=== PATIENT | male | born 2000 | race Caucasian/White ===

== ENCOUNTER 2022-07-12 09:32 | Inpatient (IN) ==
[2022-07-12] MEDS ORDERED: SODIUM CHLORIDE 0.9% 1000ML 1,000 ML IV ONE (09:46)
[2022-07-12 10:14] LABS: Hematocrit (blood only) 47.2 % (40.1-51.0); Hemoglobin 16.1 g/dl (14.0-18.0); Mean Corpuscular Hemoglobin 31.6 pg (25.0-34.0); Mean Corpuscular Hgb Conc 34.1 g/dL (32.0-36.0); Mean Corpuscular Volume 92.7 fL (80.0-100.0); Mean Platelet Volume 9.5 fL (9.4-12.4); Platelet Count 302 K/uL (130-400); RDW Coefficient of Variation 12.1 % (11.5-14.5); RDW Standard Deviation 41.6 fL (36.4-46.3); Red Blood Count 5.09 M/uL (4.63-6.08); White Blood Count 26.13 K/ul (4.8-10.8)
[2022-07-12 10:15] LABS: Base Excess ABG -23.6 mEq/L (-9-1.8); HCO3 ABG 5 mmol/L (19-24); Oxygen Saturation ABG > 100.0 % (90-95); PCO2 ABG 16 mmHg (35-46); PO2 ABG 122 mmHg (80-95)
[2022-07-12 10:27] LABS: pH ABG 7.07 (7.35-7.45)
[2022-07-12 10:28] LABS: Allen Test Pos (Pos)
[2022-07-12] MEDS ORDERED: CEFEPIME 2,000 MG/20 ML VIAL IV STA (10:28)
[2022-07-12] MEDS ORDERED: DEXTROSE 50% 50 ML SYRINGE IV PRN (10:38)
[2022-07-12] MEDS ORDERED: GLUCOSE 40% GEL 15 GM TUBE PO PRN (10:38)
[2022-07-12] MEDS ORDERED: CARBOHYDRATES FOR HYPOGLYCEMIA PO PRN (10:38)
[2022-07-12] MEDS ORDERED: GLUCAGON FOR INJ 1 MG VIAL SQ PRN (10:38)
[2022-07-12] MEDS ORDERED: GLUCOSE 10 TAB/TUBE PO PRN (10:38)
[2022-07-12] MEDS ORDERED: DKA GOAL RANGE 150-250 mg/dl ONE ×2 (10:38→16:32)
[2022-07-12] MEDS ORDERED: STAT IV STA (10:39)
[2022-07-12 10:40] LABS: Albumin Globulin Ratio 1.5 (0.9-2); Albumin Level 4.8 gm/dl (3.4-5.0); BUN Creatinine Ratio 22.5 (10-20); Bilirubin,Total 0.5 mg/dl (0.2-1.0); Calcium 8.9 mg/dl (8.5-10.1); Creatinine Clr Calc Pharmacy 73.4 ml/min; Est GFR (African American) 74.4 ml/min; Est GFR (Non-African American) 64.2 ml/min; Globulin 3.1 gm/dl (2.5-4.0); Magnesium 2.1 mg/dl (1.7-2.4); Potassium 5.7 mmol/L (3.5-5.1); Total Protein 7.9 gm/dl (6.0-8.3)
[2022-07-12] MEDS ORDERED: NORMOSOL-R 1,000 ML IV ONE (10:40)
[2022-07-12 10:42] LABS: Troponin I High Sensitivity 4.6 pg/ml (0-20)
[2022-07-12] MEDS ORDERED: SODIUM BICARBONATE 8.4% 150 MEQ in DEXTROSE 5% 1,000 ML IV SCH (10:45)
[2022-07-12] MEDS ORDERED: NovoLIN-R BOLUS FROM BAG IV ONE (10:45)
[2022-07-12 10:46] LABS: Prothrombin Time 11.1 Seconds (9.0-12.0)
[2022-07-12 10:51] LABS: Acanthocytes 2+; Basophils # (auto) 0.09 K/uL (0-0.2); Basophils % (auto) 0.3 %; Eosinophils # (auto) 0.01 K/uL (0-0.50); Immature Granulocytes # (auto) 0.35 K/uL (0.00-0.02); Immature Granulocytes % (auto) 1.3 %; Lymphocytes # (auto) 1.05 K/uL (1.2-3.4); Monocytes % (auto) 7.3 %; Neutrophils # (auto) 22.73 K/uL (1.4-6.5); Neutrophils % (auto) 87.1 %; Polychromasia 1+; Tear Drop Cells 1+
--- NOTE | 2022-07-12 11:01 | Emergency Department Note ---
Impression & Plan DKA (diabetic ketoacidosis), Nausea & vomiting, Abdominal pain, LASHA (acute kidney injury), Acute hyperkalemia, Non-compliance ED Provider Note ED Provider Note NAME: MICHEL [id number] AGE:21 SEX: Male : 2000 ARRIVES VIA: EMS INFORMANT: Patient ED PROVIDER(s): Justyna Tavares DO CHIEF COMPLAINT: Hyperglycemia, nausea and vomiting HPI: This is a 21-year-old male presents via EMS from local [facility] facility due to concern for persistent hyperglycemia as well as patient's complaints of nausea and vomiting. Patient is a type I diabetic diagnosed at 10 years old. Per accompanying [facility] reports, patient has had varying levels of hyperglycemia over the last 4 to 5 days, but was also refusing to take his long-acting insulin. When asked about this, patient does not give any reason as to why he was refusing it. Patient states he has felt ill over the last 5 to 6 days with nausea and vomiting, and evolving abdominal pain. He states abdominal pain is "all over" and otherwise nonradiating. He denies any change in urine or stools. He states he feels tired. He states this feels similar to when he previously had DKA. Patient denies any recent fevers, chills, or URI symptoms. No other change in his medications. PAST MEDICAL HISTORY:See Below PAST SURGICAL HISTORY:See Below FAMILY HISTORY:See Below SOCIAL HISTORY:See Below HOME MEDICATIONS:See Below ALLERGIES:See Below VITALS:See Below PHYSICAL EXAMINATION: GENERAL: alert, unwell appearing, well nourished, no distress, non-toxic EYE EXAM: normal conjunctiva, PERRL and EOM's grossly intact OROPHARYNX: no exudate, no erythema, lips, buccal mucosa, and tongue normal and mucous membranes are dry NECK: supple, no nuchal rigidity, no adenopathy, non-tender LUNGS: Clear to auscultation. Normal chest wall mechanics, no w/r/r, mild ketotic smell HEART: no murmurs, S1 normal and S2 normal ABDOMEN: abdomen soft, generalized discomfort with palpation, normo-active bowel sounds, no masses, no rebound or guarding. Dull to percussion BACK: Back is symmetrical on inspection and there is no deformity, no midline tenderness, no CVA tenderness. SKIN: no rashes, petechiae, orbruising UPPER EXTREMITIES: upper extremities are grossly normal. FROM, nml pulses b/l. LOWER EXTREMITIES: No pitting edema. FROM, nml pulses b/l. NEURO EXAM: Normal sensorium, cranial nerves II-XII grossly intact, normal speech, no facial droop,nogross weakness of arms, no gross weakness of legs. Gross sensation intact. No ataxia. Vital Signs: reviewed and remarkable Differential Diagnosis: DKA, hyperglycemia, noncompliance, medication ADR, infection, trauma, LASHA, acute abdominal emergency, as well as others were considered MEDICAL DECISION MAKING: This is a 21 yo T1DM who presents with 5-6 days of n/v and abdominal pain. Shelter records indicate he has been refusing his long acting insulin. IV established by EMS. Labs drawn here, EKG and xray performed, patient given IVF and medication for nausea. Labs revealed suspected diagnosis of DKA. Patient reported feeling improved with IVF and was asking for po. Insuling drip and bicarb drip started. Normosol added. Patient and [facility] staff updated on results and plan. Case discussed with registered nurse cardiac and hospitalist for additional inpatient treatment. VS stable. HR improved with IVF. Patient a febrile. No ectopy or dysrhythmia noted. Consultation(s): 1108: Discussed with Dr. Kohler, ICU. 1134: Discussed with Dr. Tovar, [facility] hospitalist service ER Treatment Provided: See below 1052: Patient updated on results. Patient states abdominal pain and nausea are now improved after 1 L of IV fluids. Patient asking to take something by mouth. Diagnostics Interpreted By Me: -ECG: Sinus tachycardia 122, normal axis, normal QRS and QTc, nonspecific ST/T wave changes -Cardiac Monitoring: An order was placed for continuous cardiac monitoring. The monitor shows a rate of 117 with sinus tachycardia rhythm. -Laboratory studies: As stated above and show below. -Imaging studies: Chest and abdominal x-ray Triage Nursing Note Reviewed Prior/Outside Records Reviewed - [facility] records Procedures: [] Critical Care: Critical care of 46 min performed to assess and manage high likelihood of life- threatening DKA, involving labs and imaging performed with assessment to evaluate DKA diagnosis with frequent reassessment. This time includes bedside time, treatment discussions with patient/family/consultants, documentation time and excludes procedure time. Past Med/Surg History Medical History (Updated 07/12/22 @ 20:35 by Justyna Tavares DO) Ruptured spleen Traumatic pneumothorax Type 1 diabetes mellitus Surgical History (Updated 07/12/22 @ 11:57 by Karla Villarreal PA-C) No significant past surgical history Family History (Updated 07/12/22 @ 11:58 by Karla Villarreal PA-C) Denies family history of Diabetes Social History Smoking Status: Current every day smoker Do You Dip or Chew Tobacco: Yes; Hx Alcohol Use: No Hx Substance Use: No Preferred Language: Italian Lending Advisor Required: No Beliefs That Will Affect Care: None Current Living Situation: Other Feels Safe at Home: Yes Assistive Devices: Glasses Allergies Allergies Allergy/AdvReac Type Severity Reaction Status Date / Time No Known Allergies Allergy Verified 07/12/22 15:35 Home Meds Home Medications Medication Instructions Recorded Confirmed insulin glargine 100 unit/mL 37 unit subcut PM 07/12/22 07/12/22 subcutaneous solution insulin regular human 100 unit/mL 1 sliding scale dose subcut 07/12/22 07/12/22 injection solution (Novolin R USEASDIRECTD Regular U-100 Insulin) Results & Data (ED) Vital Signs Vital Signs - 24 hr 07/12/22 09:43 07/12/22 09:55 07/12/22 10:00 Temperature 37.1 C Temperature Source Oral Pulse Rate 129 H 123 H Pulse Rate from SpO2 Sensor 124 H Respiratory Rate 18 21 Blood Pressure 120/65 116/70 Blood Pressure Mean 83 85 Pulse Oximetry 100 100 Oxygen Delivery Method Room Air Room Air Sepsis Recent Fever Within 48 Hours No Sepsis New/Unexplained Change in Mental Status No Sepsis Action Taken by Nursing No Action Required 07/12/22 10:00 07/12/22 10:30 07/12/22 10:30 Temperature Temperature Source Pulse Rate 121 H 124 H Pulse Rate from SpO2 Sensor 125 H Respiratory Rate 19 18 Blood Pressure 112/56 L Blood Pressure Mean 74 Pulse Oximetry 100 Oxygen Delivery Method Sepsis Recent Fever Within 48 Hours Sepsis New/Unexplained Change in Mental Status Sepsis Action Taken by Nursing 07/12/22 11:00 07/12/22 11:30 Temperature Temperature Source Pulse Rate 131 H 122 H Pulse Rate from SpO2 Sensor Respiratory Rate 18 19 Blood Pressure Blood Pressure Mean Pulse Oximetry Oxygen Delivery Method Sepsis Recent Fever Within 48 Hours Sepsis New/Unexplained Change in Mental Status Sepsis Action Taken by Nursing Laboratory Data 07/12/22 10:05 07/12/22 10:05 Lab Results 07/12/22 07/12/22 07/12/22 Range/Units 09:43 09:44 10:05 WBC (4.8-10.8) K/ul RBC (4.63-6.08) M/uL Hgb (14.0-18.0) g/dl Hct (40.1-51.0) % MCV (80.0-100.0) fL MCH (25.0-34.0) pg MCHC (32.0-36.0) g/dL RDW Std Deviation (36.4-46.3) fL RDW Coeff of Jillian (11.5-14.5) % Plt Count (130-400) K/uL MPV (9.4-12.4) fL Immature Gran % (Auto) % Neut % (Auto) % Lymph % (Auto) % [place] % (Auto) % Eos % (Auto) % Baso % (Auto) % Neut # (Auto) (1.4-6.5) K/uL Lymph # (Auto) (1.2-3.4) K/uL [place] # (Auto) (0.24-0.82) K/uL Eos # (Auto) (0-0.50) K/uL Baso # (Auto) (0-0.2) K/uL Immature Gran # (Auto) (0.00-0.02) K/uL Polychromasia Tear Drop Cells Acanthocytes (Spur) PT (9.0-12.0) Seconds INR (0.9-1.1) ABG pH 7.07 L* (7.35-7.45) ABG pCO2 16 L (35-46) mmHg ABG pO2 122 H (80-95) mmHg ABG HCO3 5 L (19-24) mmol/L ABG O2 Saturation > 100.0 H (90-95) % ABG Base Excess -23.6 L (-9-1.8) mEq/L Tyler Test Pos (Pos) Oxygen Given ROOM AIR Sodium (136-145) mmol/L Potassium (3.5-5.1) mmol/L Chloride (98-107) mmol/L Carbon Dioxide (21-32) mmol/L Anion Gap (3-11) BUN (6-23) mg/dl Creatinine (0.6-1.4) mg/dl Est Cr Clr Drug Dosing ml/min Est GFR ( Amer) ml/min Est GFR (Non-Af Amer) ml/min BUN/Creatinine Ratio (10-20) Glucose (70-99(Fasting)) mg/dl POC Glucose > 600 H* 572 H* (70-99) mg/dl Lactate (0.4-2.0) mmol/L Calcium (8.5-10.1) mg/dl Magnesium (1.7-2.4) mg/dl Total Bilirubin (0.2-1.0) mg/dl AST (13-39) U/L ALT (7-52) U/L Alkaline Phosphatase (34-104) U/L Troponin I High Sens (0-20) pg/ml Total Protein (6.0-8.3) gm/dl Albumin (3.4-5.0) gm/dl Globulin (2.5-4.0) gm/dl Albumin/Globulin Ratio (0.9-2) Lipase (11-82) U/L Procalcitonin (0-0.5) ng/ml TSH (0.300-4.500) uIu/ml Urine Color Urine Appearance (Clear) Urine pH (4.5-7.5) Ur Specific [place] (1.000-1.030) Urine Protein (Negative) Urine Glucose (UA) (Negative) Urine Ketones (Negative) Urine Blood (Negative) Urine Nitrite (Negative) Urine Bilirubin (Negative) Urine Urobilinogen (Negative) Ur Leukocyte Esterase (Negative) Urine WBC (Auto) (0-5) /hpf Urine RBC (Auto) (0-4) /hpf U Hyaline Cast (Auto) (0-5) /lpf U Epithel Cells (Auto) (0-5) /lpf Urine Bacteria (Auto) (Negative) Urine Opiates Screen (Neg) Ur Methadone, Qual (Neg) Urine Barbiturates (Neg) Ur Phencyclidine (PCP) (Neg) U Amphetamin/Meth Scrn (Neg) MDMA (Ecstasy) Screen (Neg) U Benzodiazepines Scrn (Neg) Ur Cocaine Metabolite (Neg) U Marijuana (THC) Screen (Neg) 07/12/22 07/12/22 07/12/22 Range/Units 10:05 10:05 10:05 WBC 26.13 H (4.8-10.8) K/ul RBC 5.09 (4.63-6.08) M/uL Hgb 16.1 (14.0-18.0) g/dl Hct 47.2 (40.1-51.0) % MCV 92.7 (80.0-100.0) fL MCH 31.6 (25.0-34.0) pg MCHC 34.1 (32.0-36.0) g/dL RDW Std Deviation 41.6 (36.4-46.3) fL RDW Coeff of Jillian 12.1 (11.5-14.5) % Plt Count 302 (130-400) K/uL MPV 9.5 (9.4-12.4) fL Immature Gran % (Auto) 1.3 % Neut % (Auto) 87.1 % Lymph % (Auto) 4.0 % [place] % (Auto) 7.3 % Eos % (Auto) 0.0 % Baso % (Auto) 0.3 % Neut # (Auto) 22.73 H (1.4-6.5) K/uL Lymph # (Auto) 1.05 L (1.2-3.4) K/uL [place] # (Auto) 1.90 H (0.24-0.82) K/uL Eos # (Auto) 0.01 (0-0.50) K/uL Baso # (Auto) 0.09 (0-0.2) K/uL Immature Gran # (Auto) 0.35 H (0.00-0.02) K/uL Polychromasia 1+ Tear Drop Cells 1+ Acanthocytes (Spur) 2+ PT 11.1 (9.0-12.0) Seconds INR 1.0 (0.9-1.1) ABG pH (7.35-7.45) ABG pCO2 (35-46) mmHg ABG pO2 (80-95) mmHg ABG HCO3 (19-24) mmol/L ABG O2 Saturation (90-95) % ABG Base Excess (-9-1.8) mEq/L Tyler Test (Pos) Oxygen Given Sodium 134 L (136-145) mmol/L Potassium 5.7 H (3.5-5.1) mmol/L Chloride 99 (98-107) mmol/L Carbon Dioxide 5 L* (21-32) mmol/L Anion Gap 30 H (3-11) BUN 34 H (6-23) mg/dl Creatinine 1.51 H (0.6-1.4) mg/dl Est Cr Clr Drug Dosing 73.4 ml/min Est GFR ( Amer) 74.4 ml/min Est GFR (Non-Af Amer) 64.2 ml/min BUN/Creatinine Ratio 22.5 H (10-20) Glucose 583 H* (70-99(Fasting)) mg/dl POC Glucose (70-99) mg/dl Lactate (0.4-2.0) mmol/L Calcium 8.9 (8.5-10.1) mg/dl Magnesium 2.1 (1.7-2.4) mg/dl Total Bilirubin 0.5 (0.2-1.0) mg/dl AST 8 L (13-39) U/L ALT 13 (7-52) U/L Alkaline Phosphatase 75 (34-104) U/L Troponin I High Sens 4.6 (0-20) pg/ml Total Protein 7.9 (6.0-8.3) gm/dl Albumin 4.8 (3.4-5.0) gm/dl Globulin 3.1 (2.5-4.0) gm/dl Albumin/Globulin Ratio 1.5 (0.9-2) Lipase 54 (11-82) U/L Procalcitonin (0-0.5) ng/ml TSH (0.300-4.500) uIu/ml Urine Color Urine Appearance (Clear) Urine pH (4.5-7.5) Ur Specific [place] (1.000-1.030) Urine Protein (Negative) Urine Glucose (UA) (Negative) Urine Ketones (Negative) Urine Blood (Negative) Urine Nitrite (Negative) Urine Bilirubin (Negative) Urine Urobilinogen (Negative) Ur Leukocyte Esterase (Negative) Urine WBC (Auto) (0-5) /hpf Urine RBC (Auto) (0-4) /hpf U Hyaline Cast (Auto) (0-5) /lpf U Epithel Cells (Auto) (0-5) /lpf Urine Bacteria (Auto) (Negative) Urine Opiates Screen (Neg) Ur Methadone, Qual (Neg) Urine Barbiturates (Neg) Ur Phencyclidine (PCP) (Neg) U Amphetamin/Meth Scrn (Neg) MDMA (Ecstasy) Screen (Neg) U Benzodiazepines Scrn (Neg) Ur Cocaine Metabolite (Neg) U Marijuana (THC) Screen (Neg) 07/12/22 07/12/22 07/12/22 Range/Units 10:05 11:03 11:04 WBC (4.8-10.8) K/ul RBC (4.63-6.08) M/uL Hgb (14.0-18.0) g/dl Hct (40.1-51.0) % MCV (80.0-100.0) fL MCH (25.0-34.0) pg MCHC (32.0-36.0) g/dL RDW Std Deviation (36.4-46.3) fL RDW Coeff of Jillian (11.5-14.5) % Plt Count (130-400) K/uL MPV (9.4-12.4) fL Immature Gran % (Auto) % Neut % (Auto) % Lymph % (Auto) % [place] % (Auto) % Eos % (Auto) % Baso % (Auto) % Neut # (Auto) (1.4-6.5) K/uL Lymph # (Auto) (1.2-3.4) K/uL [place] # (Auto) (0.24-0.82) K/uL Eos # (Auto) (0-0.50) K/uL Baso # (Auto) (0-0.2) K/uL Immature Gran # (Auto) (0.00-0.02) K/uL Polychromasia Tear Drop Cells Acanthocytes (Spur) PT (9.0-12.0) Seconds INR (0.9-1.1) ABG pH (7.35-7.45) ABG pCO2 (35-46) mmHg ABG pO2 (80-95) mmHg ABG HCO3 (19-24) mmol/L ABG O2 Saturation (90-95) % ABG Base Excess (-9-1.8) mEq/L Tyler Test (Pos) Oxygen Given Sodium (136-145) mmol/L Potassium (3.5-5.1) mmol/L Chloride (98-107) mmol/L Carbon Dioxide (21-32) mmol/L Anion Gap (3-11) BUN (6-23) mg/dl Creatinine (0.6-1.4) mg/dl Est Cr Clr Drug Dosing ml/min Est GFR ( Amer) ml/min Est GFR (Non-Af Amer) ml/min BUN/Creatinine Ratio (10-20) Glucose (70-99(Fasting)) mg/dl POC Glucose (70-99) mg/dl Lactate 2.4 H* (0.4-2.0) mmol/L Calcium (8.5-10.1) mg/dl Magnesium (1.7-2.4) mg/dl Total Bilirubin (0.2-1.0) mg/dl AST (13-39) U/L ALT (7-52) U/L Alkaline Phosphatase (34-104) U/L Troponin I High Sens (0-20) pg/ml Total Protein (6.0-8.3) gm/dl Albumin (3.4-5.0) gm/dl Globulin (2.5-4.0) gm/dl Albumin/Globulin Ratio (0.9-2) Lipase (11-82) U/L Procalcitonin 0.16 (0-0.5) ng/ml TSH 0.360 (0.300-4.500) uIu/ml Urine Color Urine Appearance (Clear) Urine pH (4.5-7.5) Ur Specific [place] (1.000-1.030) Urine Protein (Negative) Urine Glucose (UA) (Negative) Urine Ketones (Negative) Urine Blood (Negative) Urine Nitrite (Negative) Urine Bilirubin (Negative) Urine Urobilinogen (Negative) Ur Leukocyte Esterase (Negative) Urine WBC (Auto) (0-5) /hpf Urine RBC (Auto) (0-4) /hpf U Hyaline Cast (Auto) (0-5) /lpf U Epithel Cells (Auto) (0-5) /lpf Urine Bacteria (Auto) (Negative) Urine Opiates Screen (Neg) Ur Methadone, Qual (Neg) Urine Barbiturates (Neg) Ur Phencyclidine (PCP) (Neg) U Amphetamin/Meth Scrn (Neg) MDMA (Ecstasy) Screen (Neg) U Benzodiazepines Scrn (Neg) Ur Cocaine Metabolite (Neg) U Marijuana (THC) Screen (Neg) 07/12/22 07/12/22 07/12/22 Range/Units 11:08 11:35 11:35 WBC (4.8-10.8) K/ul RBC (4.63-6.08) M/uL Hgb (14.0-18.0) g/dl Hct (40.1-51.0) % MCV (80.0-100.0) fL MCH (25.0-34.0) pg MCHC (32.0-36.0) g/dL RDW Std Deviation (36.4-46.3) fL RDW Coeff of Jillian (11.5-14.5) % Plt Count (130-400) K/uL MPV (9.4-12.4) fL Immature Gran % (Auto) % Neut % (Auto) % Lymph % (Auto) % [place] % (Auto) % Eos % (Auto) % Baso % (Auto) % Neut # (Auto) (1.4-6.5) K/uL Lymph # (Auto) (1.2-3.4) K/uL [place] # (Auto) (0.24-0.82) K/uL Eos # (Auto) (0-0.50) K/uL Baso # (Auto) (0-0.2) K/uL Immature Gran # (Auto) (0.00-0.02) K/uL Polychromasia Tear Drop Cells Acanthocytes (Spur) PT (9.0-12.0) Seconds INR (0.9-1.1) ABG pH (7.35-7.45) ABG pCO2 (35-46) mmHg ABG pO2 (80-95) mmHg ABG HCO3 (19-24) mmol/L ABG O2 Saturation (90-95) % ABG Base Excess (-9-1.8) mEq/L Tyler Test (Pos) Oxygen Given Sodium (136-145) mmol/L Potassium (3.5-5.1) mmol/L Chloride (98-107) mmol/L Carbon Dioxide (21-32) mmol/L Anion Gap (3-11) BUN (6-23) mg/dl Creatinine (0.6-1.4) mg/dl Est Cr Clr Drug Dosing ml/min Est GFR ( Amer) ml/min Est GFR (Non-Af Amer) ml/min BUN/Creatinine Ratio (10-20) Glucose (70-99(Fasting)) mg/dl POC Glucose 554 H* (70-99) mg/dl Lactate (0.4-2.0) mmol/L Calcium (8.5-10.1) mg/dl Magnesium (1.7-2.4) mg/dl Total Bilirubin (0.2-1.0) mg/dl AST (13-39) U/L ALT (7-52) U/L Alkaline Phosphatase (34-104) U/L Troponin I High Sens (0-20) pg/ml Total Protein (6.0-8.3) gm/dl Albumin (3.4-5.0) gm/dl Globulin (2.5-4.0) gm/dl Albumin/Globulin Ratio (0.9-2) Lipase (11-82) U/L Procalcitonin (0-0.5) ng/ml TSH (0.300-4.500) uIu/ml Urine Color Yellow Urine Appearance Clear (Clear) Urine pH 5.0 (4.5-7.5) Ur Specific [place] 1.025 (1.000-1.030) Urine Protein 1+ H (Negative) Urine Glucose (UA) 3+ H (Negative) Urine Ketones 4+ H (Negative) Urine Blood Trace H (Negative) Urine Nitrite Negative (Negative) Urine Bilirubin Negative (Negative) Urine Urobilinogen Negative (Negative) Ur Leukocyte Esterase Negative (Negative) Urine WBC (Auto) 1-5 (0-5) /hpf Urine RBC (Auto) 0-4 (0-4) /hpf U Hyaline Cast (Auto) 1-5 (0-5) /lpf U Epithel Cells (Auto) 0-5 (0-5) /lpf Urine Bacteria (Auto) Negative (Negative) Urine Opiates Screen Neg (Neg) Ur Methadone, Qual Neg (Neg) Urine Barbiturates Neg (Neg) Ur Phencyclidine (PCP) Neg (Neg) U Amphetamin/Meth Scrn Neg (Neg) MDMA (Ecstasy) Screen Neg (Neg) U Benzodiazepines Scrn Neg (Neg) Ur Cocaine Metabolite Neg (Neg) U Marijuana (THC) Screen Neg (Neg) Administered Medications Insulin Human Regular 250 (units/ Sodium Chloride) 250 mls @ 9.2 mls/hr IV .Q24H BRYAN; Protocol Stop: 08/11/22 10:44 Last Titration: 07/12/22 20:17 Dose: 0 units/hr, 0 mls/hr Documented By: SUSI Co-signed By: TMG Titration: 07/12/22 19:08 Dose: 9.2 units/hr, 9.2 mls/hr Documented By: [id number] Co-signed By: KEG Titration: 07/12/22 18:05 Dose: 11.5 units/hr, 11.5 mls/hr Documented By: [id number] Co-signed By: KGY Titration: 07/12/22 17:05 Dose: 11.5 units/hr, 11.5 mls/hr Documented By: [id number] Co-signed By: PRATIMAG Titration: 07/12/22 16:01 Dose: 11.5 units/hr, 11.5 mls/hr Documented By: [id number] Co-signed By: AMS Titration: 07/12/22 15:13 Dose: 11.5 units/hr, 11.5 mls/hr Documented By: [id number] Co-signed By: AMS Titration: 07/12/22 13:52 Dose: 9.8 units/hr, 9.8 mls/hr Documented By: [id number] Co-signed By: FINN Titration: 07/12/22 12:42 Dose: 8.2 units/hr, 8.2 mls/hr Documented By: [id number] Co-signed By: MIGEL Titration: 07/12/22 12:41 Dose: 8.6 units/hr, 8.6 mls/hr Documented By: [id number] Co-signed By: MIGEL Admin: 07/12/22 11:27 Dose: 6.8 units/hr, 6.8 mls/hr Documented By: [id number] Co-signed By: LULÚ Potassium Chloride/Dextrose/Sod Cl (D5w And 1/2nss + 20meq Kcl) 20 meq in 1,000 mls @ 125 mls/hr IV .Q8H BRYAN Stop: 08/11/22 19:29 Last Admin: 07/12/22 20:12 Dose: 125 mls/hr Documented By: SUSI Insulin Aspart (Insulin Aspart Per Unit) 0 units SC ACHS BRYAN Stop: 08/11/22 11:29 Last Admin: 07/12/22 16:57 Dose: Not Given Documented By: [id number] Admin: 07/12/22 12:00 Dose: Not Given Documented By: [id number] Discontinued Medications Sodium Chloride (Nss 1000ml) 1,000 mls @ 999 mls/hr IV .Q1H1M ONE Stop: 07/12/22 10:46 Last Infusion: 07/12/22 14:16 Dose: 0 mls/hr Documented By: [id number] Admin: 07/12/22 09:54 Dose: 999 mls/hr Documented By: LULÚ Cefepime HCl (Maxipime) 2,000 mg in 20 mls @ 5 mls/min IV NOW STA; Protocol Stop: 07/12/22 10:31 Last Admin: 07/12/22 12:28 Dose: 5 mls/min Documented By: [id number] Sodium Bicarbonate 150 meq/ (Dextrose) 1,150 mls @ 150 mls/hr IV .Q7H40M BRYAN Stop: 08/11/22 10:44 Last Infusion: 07/12/22 16:56 Dose: 0 mls/hr Documented By: [id number] Admin: 07/12/22 11:27 Dose: 150 mls/hr Documented By: [id number] Parenteral Electrolytes (Normosol-R) 1,000 mls @ 999 mls/hr IV .Q1H1M ONE Stop: 07/12/22 11:40 Last Infusion: 07/12/22 14:16 Dose: 0 mls/hr Documented By: [id number] Admin: 07/12/22 12:28 Dose: 999 mls/hr Documented By: [id number] Parenteral Electrolytes (Normosol-R) 1,000 mls @ 125 mls/hr IV .Q8H [facility] Stop: 08/11/22 16:59 Last Admin: 07/12/22 17:09 Dose: Not Given Documented By: [id number] Potassium Chloride/Sodium Chloride (1/2 Nss + 20meq Kcl 1000ml) 20 meq in 1,000 mls @ 125 mls/hr IV .Q8H [facility] Stop: 08/11/22 17:14 Last Infusion: 07/12/22 20:11 Dose: 0 mls/hr Documented By: Admin: 07/12/22 18:07 Dose: 125 mls/hr Documented By: [id number] Insulin Human Regular (Novolin-R Bolus From Bag) 7 units IV ONE ONE Stop: 07/12/22 10:46 Last Admin: 07/12/22 11:28 Dose: 7 units Documented By: [id number] Co-signed By: LULÚ Miscellaneous (Stat Iv) 1 each N/A NOW STA Stop: 07/12/22 10:40 Last Admin: 07/12/22 11:48 Dose: Not Given Documented By: [id number] Imaging Data Radiologist's Impression: Chest/Abdomen X-ray 07/12/22 09:46 XR abdomen 2V w PA chest HISTORY: 21 years-old Male n/v, chest pain acute nausea and vomiting with chest pain COMPARISON: None TECHNIQUE: PA view of the chest with erect and supine views of the abdomen FINDINGS: Cardiomediastinal and hilar silhouettes are within normal limits. No pneumothorax, pleural effusion, airspace consolidation or pulmonary edema. No pneumatosis or pneumoperitoneum. Moderately distended stomach with air-fluid level. Nonobstructive bowel gas pattern with mild colonic fecal retention. Punctate pelvic basin calcifications suggestive of phleboliths. No urolith identified. There are 3 radiodense foci project of the upper abdomen measuring up to 1.3 cm. IMPRESSION: 1. No acute processes of the chest. 2. Nonobstructive bowel gas pattern. 3. There are 3 radiodense foci projecting over the upper abdomen. These may be external to the patient or alternatively may represent ingested foreign bodies. Correlate with physical exam findings and possible repeat follow-up abdominal radiograph. ACT 112: Negative or not required by law. The above report was generated using voice recognition software. It may contain grammatical, syntax or spelling errors. Electronically signed by: Fab Garcia M.D. 07/12/2022 12:31 PM Discharge Plan Visit Data Chief Complaint: Hyperglycemia Stated Complaint: HYPERGLYCEMIA ED Provider: Justyna Tavares Discharge Problem: DKA (diabetic ketoacidosis), Nausea & vomiting, Abdominal pain, LASHA (acute kidney injury), Acute hyperkalemia, Non-compliance Patient Disposition: Admitted As Inpatient Discharge Instructions Interventions: ED Discharge Assessment Last Done: 07/12/22 16:19
--- NOTE | 2022-07-12 11:04 | Electrocardiogram Report ---
Test Reason : Blood Pressure : / mmHG Vent. Rate : 122 BPM Atrial Rate : 122 BPM P-R Int : 124 ms QRS Dur : 104 ms QT Int : 302 ms P-R-T Axes : 071 078 044 degrees QTc Int : 430 ms Poor data quality, interpretation may be adversely affected Sinus tachycardia Possible Left atrial enlargement Nonspecific T wave abnormality Abnormal ECG No previous ECGs available Confirmed by Christopher Wilson ([id number]) on 07/12/2022 11:03:52 AM Referred By: [facility] Confirmed By:Christopher Wilson
--- NOTE | 2022-07-12 11:25 | History & Physical Report ---
Date of Service July 12, 2022 Assessment & Plan (1) DKA (diabetic ketoacidosis): Plan: - 5 days of hyperglycemia 300-400, abdominal pain, nausea, vomiting while refusing insulin. History of DM1 at age 10, last hospitalization for DKA several years ago. - OXYGEN SYSTEM TESTER--> 38 units long acting with SSI. - Refusing insulin past few days to it being cold out. - Presenting with glucose 583, AG 30, pH 7.07, bicarb 5, lactate 2.9 - ABG: ph 7.07 / CO2 16 /O2 122 / bicarb 5 - K 5.7, Mg 2.3 - ED: 7 units regular IV insulin with insulin gtt, bicarb gtt, 2L IVF bolus. - Admit to PCU with insulin drip, per protocol. - Check BSG every hour. - Goal BSG range [id number]. - Transition to fluids with KCl when K < 5.2. - Pharmacy consulted to assist with transition to subcu insulin - BMP, VBG's, phosphorus, mag levels every 4 hours and daily. - NPO, may have sips with meds, ice chips. No diet until BSG < 250. (2) LASHA (acute kidney injury): Plan: - BUN 34, Cr 1.51, no history of CKD, no baseline labs for reference. - Likely secondary to DKA process, see management/fluids as above. - BMP q4h/daily. (3) Type 1 diabetes mellitus: Plan: - Diagnosed age 10, insulin OXYGEN SYSTEM TESTER--> 38 units Lantus daily with SSI. - DKA management as above. (4) Nausea & vomiting: (5) Abdominal pain: Plan: - Likely secondary to DKA. with elevated WBC more likely reactive to DKA/nausea, vomiting rather than infectious etiology. Did receive empiric dose of cefepime in ED. - Zofran prn for nausea/vomiting. Plan - Admit to PCU. - SCDs, heparin for VTE ppx. - Full Code. History of Present Illness Chief Complaint: nausea, vomiting, abdominal pain, hyperglycemia x 4-5 days Primary Care Provider: JIMMY Rahul Casas is a 21-year-old male with a past medical history significant for DM1 diagnosed at age 10 who is presenting today from a local longterm facility with persistent hyperglycemia and nausea and vomiting. Over the past 5 days his sugar has been elevated though patient refused to take insulin. He has refused insulin because "its cold outside". Has also had nausea and vomiting with abdominal pain all over w/ radiation to back. He feels tired and reports chills but has no reported fevers, body aches, chest pain, palpitations, shortness of breath, cough, diarrhea, constipation, hematemesis, melena, hematochezia. Has been urinating without difficulty, denies dysuria or hematuria. Last admission for DKA was several years ago. On presentation is tachycardic to the 120s, otherwise vital signs within normal limits. White count elevated at 26 with left shift, lacat 2.4, procal pending. ABG: pH 7.07 CO2 16, O2 122, bicarb 5. Potassium 5.7, Na 134 corrects to 142 for glucose 583; Mag 2.1, Ca 8.9,AG 30. BUN 34, creatinine 1.51. Lipas 54. A1c pending. Past Med/Surg History Medical History (Updated 07/12/22 @ 12:07 by Karla Villarreal PA-C) Ruptured spleen Traumatic pneumothorax Type 1 diabetes mellitus Surgical History (Updated 07/12/22 @ 11:57 by Karla Villarreal PA-C) No significant past surgical history Family History (Updated 07/12/22 @ 11:58 by Karla Villarreal PA-C) Denies family history of Diabetes Social History Smoking Status: Never smoker Preferred Language: Ni[place]an Review of Systems Review of Systems: Constitutional: No fever/chills, weakness, fatigue, myalgias, anorexia, night sweats Eyes: No diplopia, no worsening or blurred vision ENT: normal hearing, no trouble swallowing Respiratory: No cough, sputum, dyspnea at rest or on exertion Cardiovascular: No chest pain, tightness or palpitations Abdomen: diffuse pain, nausea, vomiting x 4 days; no diarrhea or constipation, hematemesis, melena, hematochezia : Denies dysuria, hematuria, increased urgency/frequency, urinary retention Musculoskeletal: No joint pain, calf pain, swelling Neurologic: No weakness, numbness/tingling, or balance problems Psychiatric: No anxiety or depression Skin: No rash or itch Physical Exam Physical Exam: General: awake, alert, no apparent distress Head: Normocephalic, atraumatic ENT: PERRL, EOMI, no pharyngeal exudate, mucous membranes moist Chest: Clear to auscultation, on room air, no adventitious breath sounds Cardiac: Regular rate and rhythm, no murmur, no JVD, normal peripheral pulses, good capillary refill Abdominal: NABS x 4 quadrants, soft, nontender to palpation, no rebound, guarding or tenderness Extremities: Normal inspection, no peripheral edema or erythema, calfs nontender to palpation Psych: Normal mood and affect Neuro: AAO x 3, strength intact bilaterally and rated 5/5, no motor deficits, speech is clear, no peripheral sensory deficits Skin: no rash or erythema Results & Data Results & Data ([facility]) Vital Signs (Past 12 Hours) Vital Signs Temp Pulse Resp BP Pulse Ox O2 Del Method 07/12/22 10:00 121 H 19 07/12/22 10:00 116/70 07/12/22 09:55 123 H 21 100 Room Air 07/12/22 09:43 37.1 C 129 H 18 120/65 100 Room Air Laboratory Results Abnormal lab results 07/12/22 07/12/22 07/12/22 Range/Units 09:43 09:44 10:05 WBC (4.8-10.8) K/ul Neut # (Auto) (1.4-6.5) K/uL Lymph # (Auto) (1.2-3.4) K/uL [place] # (Auto) (0.24-0.82) K/uL Immature Gran # (Auto) (0.00-0.02) K/uL ABG pH 7.07 L* (7.35-7.45) ABG pCO2 16 L (35-46) mmHg ABG pO2 122 H (80-95) mmHg ABG HCO3 5 L (19-24) mmol/L ABG O2 Saturation > 100.0 H (90-95) % ABG Base Excess -23.6 L (-9-1.8) mEq/L Sodium (136-145) mmol/L Potassium (3.5-5.1) mmol/L Carbon Dioxide (21-32) mmol/L Anion Gap (3-11) BUN (6-23) mg/dl Creatinine (0.6-1.4) mg/dl BUN/Creatinine Ratio (10-20) Glucose (70-99(Fasting)) mg/dl POC Glucose > 600 H* 572 H* (70-99) mg/dl AST (13-39) U/L 07/12/22 07/12/22 07/12/22 Range/Units 10:05 10:05 11:08 WBC 26.13 H (4.8-10.8) K/ul Neut # (Auto) 22.73 H (1.4-6.5) K/uL Lymph # (Auto) 1.05 L (1.2-3.4) K/uL [place] # (Auto) 1.90 H (0.24-0.82) K/uL Immature Gran # (Auto) 0.35 H (0.00-0.02) K/uL ABG pH (7.35-7.45) ABG pCO2 (35-46) mmHg ABG pO2 (80-95) mmHg ABG HCO3 (19-24) mmol/L ABG O2 Saturation (90-95) % ABG Base Excess (-9-1.8) mEq/L Sodium 134 L (136-145) mmol/L Potassium 5.7 H (3.5-5.1) mmol/L Carbon Dioxide 5 L* (21-32) mmol/L Anion Gap 30 H (3-11) BUN 34 H (6-23) mg/dl Creatinine 1.51 H (0.6-1.4) mg/dl BUN/Creatinine Ratio 22.5 H (10-20) Glucose 583 H* (70-99(Fasting)) mg/dl POC Glucose 554 H* (70-99) mg/dl AST 8 L (13-39) U/L ECG Additional Comments: Poor data quality, interpretation may be adversely affected Sinus tachycardia Possible Left atrial enlargement Nonspecific T wave abnormality Abnormal ECG No previous ECGs available Confirmed by Christopher Wilson ([id number]) on 07/12/2022 11:03:52 AM Code Status & VTE Plan Code Status Full Code. Supervising Physician Co-Signing Physician Notes Patient seen and examined, chart reviewed, case discussed with Karla Villarreal PA-C and I agree with the assessment and plan as above except as otherwise noted Labs and images reviewed Patient seen at the bedside with FREDDIE. He reports that his been cold the last several days and he has not been going to the [facility] to get his insulin. Reports he does have a history of type 1 diabetes, has not had DKA since childhood. Generally does not miss doses of insulin, reports that he has recently just because it was cold. Reports over the last few days has had progressive abdominal pain, nausea, lower abdominal pain which wraps around his flank to his back, and nausea. Nonbloody nonbilious emesis. At bedside he is tender to palpation diffusely in the abdomen without guarding/rebound. Regular, tachycardic. Lungs symmetrical chest rise without overt wheezing and O2 sat 100% on room air. Mucous membranes are cracked, dry, legs are without edema. Type I DM with acute DKA Patient presents with DKA precipitated by not having insulin for several days. Had not been going to the [facility] as it was cold out. - Sodium 134, sodium corrected for BSG 142 - Potassium on admission 5.7 - CO2 5,Anion gap 30 - No creatinine baseline available, reportedly normal. Admitting creatinine 1.51 consistent with hypovolemic LASHA No clinical or graphic evidence of active infection Luis Daniel precipitating illness. Leukocytosis likely reactive/demargination in the setting of DKA/vomiting DKA protocol AB.07/PCO2 16/PO2 122/HCO3 5. Primary metabolic acidosis with secondary additional metabolic alkalosis suspect with LASHA. AG 30, HCO3 5. Estimated final bicarb following resolution of ketonemia is 25; If pH remains >7 and gap is closing, can discontinue bicarb and continue Normosol +/- KCL BMP/VBG every 4 hours. Once potassium is <5.2 add 2030 M EQ potassium to each liter of fluids. Convert to subcu insulin per protocol/once BSG <= 200 gap Closes, bicarb improved Otherwise agree with management as above. PG Care Time/CCT Total # of Minutes Spent Total Time Spent with Patient: Total time spent is greater than 50% in coordination of care (as documented) at patient's floor/unit and/or counseling patient: Coding Level of Care Code 03188 INT INP/OBS CARE 2/55MIN Diagnoses DKA (diabetic ketoacidosis) E11.10 LASHA (acute kidney injury) N17.9 Type 1 diabetes mellitus E10.9 Nausea & vomiting R11.2 Abdominal pain R10.9
[2022-07-12] MEDS: INSULIN REGULAR 250 UNITS in SODIUM CHLORIDE 0.9% 247.5 ML IV SCH (11:27)
--- NOTE | 2022-07-12 11:37 | Critical Care Consultation ---
Date of Consultation July 12, 2022 Assessment & Plan (1) Type 1 diabetes mellitus: Reason Critically Ill: 21-year-old male with history of noncompliance with his insulin regimen who is now in diabetic ketoacidosis PLAN: Resp: Tachypnea -Secondary to ketoacidosis CV: Tachycardia -Secondary to volume depletion Fluids/Renal: Dehydration Ketoacidosis -DKA protocol initiated Mild hyperkalemia -Anticipate this will transition to hypokalemia and will require potassium containing fluids as his metabolic gap closes Acute kidney injury -Continue to trend, currently making urine ID: Leukocytosis -No obvious source of active infection at this time GI/Nutrition: Nausea vomiting -Patient feeling better Heme: DVT prophylaxis: Heparin subcu Endocrine: ICU DKA protocol Vascular access: Peripheral IVs Code Status: Full code Disposition: Discussed with the hospitalist team, critical care will sign off at this point. Patient is tolerating p.o. and clinically improving. (2) DKA (diabetic ketoacidosis): (3) Nausea & vomiting: History of Present Illness Reason for Consultation: Diabetic ketoacidosis Requesting Physician: Justyna cisneros MD History of Present Illness Patient is a 21-year-old type I diabetic male who is currently incarcerated. He has been refusing his long-acting insulin over the last several days. He then developed nausea vomiting and was feeling chilled and unable to keep fluids down. He was transferred to the emergency department for further evaluation and management. Patient History Medical History (Updated 07/12/22 @ 11:25 by Karla Villarreal PA-C) Type 1 diabetes mellitus Social History Smoking Status: Never smoker Preferred Language: Citizen Of [place] Review of Systems Review of Systems: Subjective chills, nausea, vomiting. Physical Exam Physical Exam: General: Alert. nontoxic. Skin: Warm, dry, Head: Atraumatic Ears, nose, mouth and throat: airway patent Cardiovascular: Normal peripheral perfusion, tachycardia Respiratory: no respiratory distress, tachypnea Gastrointestinal: Non distended Musculoskeletal: No deformity Results & Data Results & Data ([facility]) Vital Signs (Past 12 Hours) Vital Signs Temp Pulse Resp BP Pulse Ox O2 Del Method 07/12/22 10:00 121 H 19 07/12/22 10:00 116/70 07/12/22 09:55 123 H 21 100 Room Air 07/12/22 09:43 37.1 C 129 H 18 120/65 100 Room Air Critical Care Results & Data Vital Signs (Past 12 Hours) Vital Signs Temp Pulse Resp BP Pulse Ox O2 Del Method 07/12/22 10:00 121 H 19 07/12/22 10:00 116/70 07/12/22 09:55 123 H 21 100 Room Air 07/12/22 09:43 37.1 C 129 H 18 120/65 100 Room Air Lab & Micro Results (Past 24 Hours) RBC 5.09 M/uL (4.63-6.08) 07/12/22 WBC 26.13 K/ul (4.8-10.8) H 07/12/22 Hgb 16.1 g/dl (14.0-18.0) 07/12/22 Hct 47.2 % (40.1-51.0) 07/12/22 MCV 92.7 fL (80.0-100.0) 07/12/22 MCH 31.6 pg (25.0-34.0) 07/12/22 MCHC 34.1 g/dL (32.0-36.0) 07/12/22 RDW Standard Deviation 41.6 fL (36.4-46.3) 07/12/22 RDW Coefficient of Variation 12.1 % (11.5-14.5) 07/12/22 Plt Count 302 K/uL (130-400) 07/12/22 MPV 9.5 fL (9.4-12.4) 07/12/22 Neutrophils (%) (Auto) 87.1 % 07/12/22 Lymphocytes (%) (Auto) 4.0 % 07/12/22 Monocytes # (Auto) 1.90 K/uL (0.24-0.82) H 07/12/22 Eosinophils # (Auto) 0.01 K/uL (0-0.50) 07/12/22 Immature Granulocyte % (Auto) 1.3 % 07/12/22 Neutrophils # (Auto) 22.73 K/uL (1.4-6.5) H 07/12/22 Lymphocytes # (Auto) 1.05 K/uL (1.2-3.4) L 07/12/22 Monocytes # (Auto) 1.90 K/uL (0.24-0.82) H 07/12/22 Eosinophils # (Auto) 0.01 K/uL (0-0.50) 07/12/22 Basophils # (Auto) 0.09 K/uL (0-0.2) 07/12/22 Immature Granulocyte # (Auto) 0.35 K/uL (0.00-0.02) H 07/12 Polychromasia 1+ 07/12/22 Tear Drop Cells 1+ 07/12/22 Acanthocytes 2+ 07/12/22 Na 134 mmol/L (136-145) L 07/12/22 K 5.7 mmol/L (3.5-5.1) H 07/12/22 Cl 99 mmol/L (98-107) 07/12/22 CO2 5 mmol/L (21-32) L* 07/12/22 Anion Gap 30 (3-11) H 07/12/22 BUN 34 mg/dl (6-23) H 07/12/22 Creatinine 1.51 mg/dl (0.6-1.4) H 07/12/22 Estimated GFR ( Amer) 74.4 ml/min 07/12/22 Estimated GFR (Non-Af Amer) 64.2 ml/min 07/12/22 BUN/Creatinine Ratio 22.5 (10-20) H 07/12/22 Glu 583 mg/dl (70-99(Fasting)) H* 07/12/22 Ca 8.9 mg/dl (8.5-10.1) 07/12/22 Total Bilirubin 0.5 mg/dl (0.2-1.0) 07/12/22 AST 8 U/L (13-39) L 07/12/22 ALT 13 U/L (7-52) 07/12/22 Alkaline Phosphatase 75 U/L (34-104) 07/12/22 TP 7.9 gm/dl (6.0-8.3) 07/12/22 Albumin 4.8 gm/dl (3.4-5.0) 07/12/22 Globulin 3.1 gm/dl (2.5-4.0) 07/12/22 Albumin/Globulin Ratio 1.5 (0.9-2) 07/12/22 Mg 2.1 mg/dl (1.7-2.4) 07/12/22 10:05 Calcium Level 8.9 mg/dl (8.5-10.1) 07/12/22 10:05 Prothromb Time International Ratio 1.0 (0.9-1.1) 07/12/22 10:0 5 Arterial Blood pH 7.07 (7.35-7.45) L* 07/12/22 10:05 Arterial Blood Partial Pressure CO2 16 mmHg (35-46) L 07/12/22 10:05 Arterial Blood Partial Pressure O2 122 mmHg (80-95) H 07/12/22 10:05 Arterial Blood HCO3 5 mmol/L (19-24) L 07/12/22 10:05 Arterial Blood Base Excess -23.6 mEq/L (-9-1.8) L 07/12/22 10:0 5 Arterial Blood Oxygen Saturation > 100.0 % (90-95) H 07/12/22 1 0:05 Blood Gas Oxygen Given ROOM AIR 07/12/22 10:05 Tyler Test Pos (Pos) 07/12/22 10:05 RT Ventilator Mngmt (Last Documented) Ventilator Ordered Settings Respiratory Rate 19 07/12/22 10:00 Ventilator - PT Measurements Respiratory Rate 19 Coding Level of Care Code Critical Care 1st 30-74 mins Diagnoses Type 1 diabetes mellitus E10.9 DKA (diabetic ketoacidosis) E11.10 Nausea & vomiting R11.2 Time Spent (min) 35
[2022-07-12] MEDS: INSULIN ASPART PER UNIT SC SCH ×3 (12:00→20:47)
[2022-07-12 12:25] LABS: Appearance Urine Clear (Clear); Bacteria Urine Automated Negative (Negative); Bilirubin Urine Negative (Negative); Blood Urine Trace (Negative); Color Urine Yellow; Epithelial Cell Urine Auto 0-5 /lpf (0-5); Glucose Urine UA 3+ (Negative); Ketones Urine 4+ (Negative); Leukocyte Esterase Urine Negative (Negative); Nitrite Urine Negative (Negative); Protein Urine 1+ (Negative); RBC Urine Automated 0-4 /hpf (0-4); Specific Gravity Urine 1.025 (1.000-1.030); Urobilinogen Urine Negative (Negative)
--- NOTE | 2022-07-12 12:34 | XRay Report ---
XR abdomen 2V w PA chest HISTORY: 21 years-old Male n/v, chest pain acute nausea and vomiting with chest pain COMPARISON: None TECHNIQUE: PA view of the chest with erect and supine views of the abdomen FINDINGS: Cardiomediastinal and hilar silhouettes are within normal limits. No pneumothorax, pleural effusion, airspace consolidation or pulmonary edema. No pneumatosis or pneumoperitoneum. Moderately distended stomach with air-fluid level. Nonobstructive bowel gas pattern with mild colonic fecal retention. Punctate pelvic basin calcifications suggestive of phleboliths. No urolith identified. There are 3 radiodense foci project of the upper abdomen harley uring up to 1.3 cm. IMPRESSION: 1. No acute processes of the chest. 2. Nonobstructive bowel gas pattern. 3. There are 3 radiodense foci projecting over the upper abdomen. These may be external to the patien t or alternatively may represent ingested foreign bodies. Correlate with physical exam findings and p ossible repeat follow-up abdominal radiograph. ACT 112: Negative or not required by law. The above report was generated using voice recognition software. It may contain grammatical, syntax o r spelling errors. Electronically signed by: Fab Garcia M.D. 07/12/2022 12:31 PM
[2022-07-12 12:44] LABS: Amphetamines+Metham, Urine Neg (Neg); Barbiturates, Urine Neg (Neg); Benzodiazepine, Urine Neg (Neg); Cocaine, Urine Neg (Neg); MDMA (Ecstacy), Urine Neg (Neg); Methadone, Urine Neg (Neg); Opiate, Urine Neg (Neg); Phencyclidine, Urine Neg (Neg)
[2022-07-12 16:28] LABS: Base Excess VBG -11.2 mEq/L; HCO3 VBG 14 mmol/L; Oxygen Saturation VBG 82.3 %; PCO2 VBG 29 mmHg (38-50); PO2 VBG 45 mmHg; pH VBG 7.29 (7.36-7.41)
[2022-07-12] MEDS ORDERED: PHARMACY GLYCEMIC MGMT CONSULT PRN (16:32)
[2022-07-12] MEDS ORDERED: POLYETHYLENE (MIRALAX) 17 GM PACK PO PRN (16:32)
[2022-07-12] MEDS ORDERED: ACETAMINOPHEN 325 MG TAB PO PRN (16:32)
[2022-07-12] MEDS ORDERED: PENDING 1/2NSS+20mEq KCL IVF SCH (16:32)
[2022-07-12] MEDS ORDERED: ONDANSETRON INJ 2 MG/ML 2 ML VIAL IV PRN (16:32)
[2022-07-12 16:47] LABS: Calcium 8.7 mg/dl (8.5-10.1); Creatinine Clr Calc Pharmacy 87.3 ml/min; Est GFR (African American) 91.7 ml/min; Est GFR (Non-African American) 79.1 ml/min; Potassium 3.8 mmol/L (3.5-5.1)
[2022-07-12] MEDS ORDERED: NORMOSOL-R 1,000 ML IV SCH (17:00)
[2022-07-12] MEDS ORDERED: PENDING D5 1/2NS+20mEq KCL IVF SCH (17:00)
[2022-07-12] MEDS ORDERED: SODIUM CHLOR 0.45% + 20MEQ KCL 20 MEQ/1,000 ML BAG IV SCH (17:15)
[2022-07-12 18:13] LABS: BUN Creatinine Ratio 20.1 (10-20); Calcium 9.1 mg/dl (8.5-10.1); Creatinine Clr Calc Pharmacy 82.7 ml/min; Est GFR (African American) 85.9 ml/min; Est GFR (Non-African American) 74.1 ml/min; Potassium 3.6 mmol/L (3.5-5.1)
[2022-07-12] MEDS: D5W AND 1/2NSS + 20MEQ KCL 20 MEQ/1,000 ML BAG IV SCH (20:12)
[2022-07-12] MEDS: HEPARIN SOD 5,000 UNIT/0.5 ML VIAL SQ SCH (20:38)
--- NOTE | 2022-07-12 20:43 | Pharmacy Report ---
Pharmacy Glycemic Short Note 2 - Date of Service July 12, 2022 - Glycemic Short BSG Results (Last 24 hours): 07/12/22 07/12/22 07/12/22 09:43 09:44 10:05 Glucose 583 H* POC Glucose > 600 H* 572 H* 07/12/22 07/12/22 07/12/22 11:08 12:36 13:43 Glucose POC Glucose 554 H* 477 H* 453 H* 07/12/22 07/12/22 07/12/22 14:58 15:57 16:10 Glucose 346 H* POC Glucose 386 H* 339 H* 07/12/22 07/12/22 07/12/22 16:58 17:31 17:59 Glucose 316 H* POC Glucose 312 H* 303 H* 07/12/22 07/12/22 19:05 20:04 Glucose POC Glucose 236 H 164 H OUTPATIENT ANTIDIABETIC REGIMEN: * Glargine 37 units SQ qPM + regular insulin sliding scale * A1c = pending ASSESSMENT: * Raoul is a 21 yo T1DM admitted with DKA. H&P indicates that patient had five days of hyperglycemia, abdominal pain, N/V and was refusing long acting insulin during this time. Presented with anion gap = 30, bicarb = 5, pH = 7.07. IV insulin drip initiated per DKA protocol. BSG trending down appropriately. Fluid orders have been modified to include dextrose as most recent labs continue to indication patient in DKA. PLAN FOR INPATIENT GLYCEMIC CONTROL: * IV insulin infusion per DKA protocol * goal range: 150 - 250 mg/dL * Basal insulin * hold * Bolus insulin * NovoLog per scale ACHS or Q6hrs while NPO * No carb ratio while patient is NPO
[2022-07-12 21:14] LABS: BUN Creatinine Ratio 21.2 (10-20); Calcium 8.8 mg/dl (8.5-10.1); Creatinine Clr Calc Pharmacy 98.1 ml/min; Est GFR (African American) 105.6 ml/min; Est GFR (Non-African American) 91.1 ml/min; Potassium 3.7 mmol/L (3.5-5.1)
[2022-07-12 21:16] LABS: Magnesium 1.9 mg/dl (1.7-2.4); Phosphorus 1.3 mg/dl (2.5-4.9)
[2022-07-12] MEDS ORDERED: POTASSIUM PHOS 3 MMOL/1 ML INFUSION IV STA ×2 (21:20→21:24)
[2022-07-12] MEDS ORDERED: POTASSIUM PHOSPHATE 30 MMOL in SODIUM CHLORIDE 0.9% 500 ML IV ONE (21:45)
[2022-07-12] MEDS ORDERED: POTASSIUM PHOSPHATE 45 MMOL in SODIUM CHLORIDE 0.9% 1000ML 1,000 ML IV ONE (22:00)
[2022-07-13 01:43] LABS: Calcium 7.2 mg/dl (8.5-10.1); Creatinine Clr Calc Pharmacy 130.4 ml/min; Est GFR (African American) 142.3 ml/min; Est GFR (Non-African American) 122.8 ml/min; Magnesium 1.5 mg/dl (1.7-2.4); Phosphorus 1.9 mg/dl (2.5-4.9); Potassium 6.4 mmol/L (3.5-5.1)
[2022-07-13 03:30] LABS: Potassium 4.3 mmol/L (3.5-5.1)
[2022-07-13] MEDS: D5W AND 1/2NSS + 20MEQ KCL 20 MEQ/1,000 ML BAG IV SCH (04:13)
[2022-07-13 05:04] LABS: Calcium 8.1 mg/dl (8.5-10.1); Magnesium 1.7 mg/dl (1.7-2.4); Potassium 4.2 mmol/L (3.5-5.1)
[2022-07-13 05:11] LABS: BUN Creatinine Ratio 19.2 (10-20); Creatinine Clr Calc Pharmacy 111.9 ml/min; Est GFR (African American) 123.9 ml/min; Est GFR (Non-African American) 106.9 ml/min; Phosphorus 3.1 mg/dl (2.5-4.9)
[2022-07-13 07:08] LABS: Estimated Average Glucose 303 mg/dl; Hemoglobin A1C 12.2 % (4.5-5.6)
[2022-07-13] MEDS: INSULIN ASPART PER UNIT SC SCH ×6 (08:04→23:59)
[2022-07-13] MEDS ORDERED: LANTUS PER UNIT CHARGE SQ ONE ×2 (08:30)
[2022-07-13] MEDS: HEPARIN SOD 5,000 UNIT/0.5 ML VIAL SQ SCH ×2 (08:37→20:27)
--- NOTE | 2022-07-13 09:07 | Pharmacy Report ---
Pharmacy Glycemic Short Note 2 - Date of Service July 13, 2022 - Glycemic Short BSG Results (Last 24 hours): 07/12/22 07/12/22 07/12/22 09:43 09:44 10:05 Glucose 583 H* POC Glucose > 600 H* 572 H* 07/12/22 07/12/22 07/12/22 11:08 12:36 13:43 Glucose POC Glucose 554 H* 477 H* 453 H* 07/12/22 07/12/22 07/12/22 14:58 15:57 16:10 Glucose 346 H* POC Glucose 386 H* 339 H* 07/12/22 07/12/22 07/12/22 16:58 17:31 17:59 Glucose 316 H* POC Glucose 312 H* 303 H* 07/12/22 07/12/22 07/12/22 19:05 20:04 20:35 Glucose 190 H POC Glucose 236 H 164 H 07/12/22 07/12/22 07/12/22 21:35 22:36 23:48 Glucose POC Glucose 175 H 169 H 143 H 07/13/22 07/13/22 07/13/22 00:45 00:45 01:13 Glucose 635 H* POC Glucose 107 H 85 07/13/22 07/13/22 07/13/22 01:31 02:04 02:27 Glucose POC Glucose 101 H 124 H 135 H 07/13/22 07/13/22 07/13/22 02:32 03:05 04:03 Glucose 151 H POC Glucose 169 H 186 H 07/13/22 07/13/22 07/13/22 04:33 05:12 05:52 Glucose 205 H POC Glucose 175 H 192 H 07/13/22 07:57 Glucose POC Glucose 163 H OUTPATIENT ANTIDIABETIC REGIMEN: * Glargine 37 units SQ qPM + regular insulin sliding scale HbA1c: 12.2% (07/12/22) ASSESSMENT: 07/13/22: * Labs much improved this morning, anion gap closed, serum bicarbonate 20 mmol/L, and pH of 7.37 * Diet advanced from NPO to T1DM/clear liquid this morning * Dextrose-containing fluids discontinued * Insulin gtt has titrated down to current rate of 2.6 units/hr * Will attempt transition to SC basal/bolus this morning with slightly reduced outpatient basal dose * discontinued insulin infusion ~lunchtime today * Contacted correctional facility for clarification on SSI, but none could be provided besides correctional only (no carb coverage) 07/12/22: * Raoul is a 21 yo T1DM admitted with DKA. H&P indicates that patient had five days of hyperglycemia, abdominal pain, N/V and was refusing long acting insulin during this time. Presented with anion gap = 30, bicarb = 5, pH = 7.07. IV insulin drip initiated per DKA protocol. BSG trending down appropriately. Fluid orders have been modified to include dextrose as most recent labs continue to indication patient in DKA. PLAN FOR INPATIENT GLYCEMIC CONTROL: * Basal insulin * Lantus 35 units SC x 1 * Bolus insulin - weight based stress of 2 to start * NovoLog per scale ACHS or Q6hrs while NPO * Goal Range: Low 110 mg/dL - High 140 mg/dL * Correction Factor: 35 mg/dL/unit * Nutritional / Prandial insulin per carb ratio of 1 unit per 11 grams CHO consumed
[2022-07-13] MEDS: INSULIN REGULAR 250 UNITS in SODIUM CHLORIDE 0.9% 247.5 ML IV SCH (11:54)
[2022-07-13] MEDS ORDERED: IBUPROFEN 600 MG TAB PO PRN (17:37)
--- NOTE | 2022-07-13 17:37 | Hospitalist Progress Note ---
Date of Service July 13, 2022 Assessment & Plan (1) DKA (diabetic ketoacidosis): Plan: - 5 days of hyperglycemia 300-400, abdominal pain, nausea, vomiting while refu sing insulin. History of DM1 at age 10, last hospitalization for DKA several years ago. - Presented with glucose 583, AG 30, pH 7.07, bicarb 5, lactate 2.9, K 5.7, Mg 2.3 -Now DKA resolved after insulin gtt, IVFs hydration -transitioned to basal and bolus insulin HgbA1C is quite high at 12.2%--> seen by CDE and pt admits to frequent noncompliance at the halfway--> misses long acting insulin twice a week and short acting at least once daily -adv diet to DM diet today -replace phos today likely dc to halfway tomorrow (2) LASHA (acute kidney injury): Plan: - BUN 34, Cr 1.51, no history of CKD, no baseline labs for reference. - Likely secondary to DKA process, see management/fluids as above. 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 with elevated WBC more likely reactive to DKA/nausea, vomiting rather than infectious etiology. Did receive empiric dose of cefepime in ED. - Zofran prn for nausea/vomiting. now resolved (6) Migraine: Plan: has a h/o such in the past, having one now with photophobia -start ibuprofen prn Plan DVT proph-add Lovenox Dispo-continued stay on tele, likely dc tomorrow Admission and Anticipated Discharge Date Admission Date: July 12, 2022 Subjective Pt has c/o headache and sensitivity to light, feels similar to previous migraines. He just ate his first solid foods for dinner. Denies nausea or abd pain. Is urinating but no BM since admission. Tele with NSR, rates 70-110s Review of Systems Review of Systems: All systems reviewed & are unremarkable except as noted in HPI & below Physical Exam Constitutional: WD/WN, vitals as above Eyes: + anicteric sclerae Neck: trachea midline, no thyromegaly Respiratory: normal respiratory effort, lungs clear to auscultation Cardiovascular: RRR, no murmur, no edema Chest (Breasts): Chest: normal inspection of chest Gastrointestinal (Abdomen): normal bowel sounds, soft, nontender, no hepatosplenomegaly Musculoskeletal: Extremities: extremities normal to inspection; no cyanosis and no clubbing Skin: no rashes, warm and dry Neurologic: moves all extremities and awake; no focal motor deficits Psychiatric: A+Ox3, euthymic affect Lymphatic: no lymphedema Results & Data Results & Data ([facility]) Vital Signs (Past 12 Hours) Vital Signs Temp Pulse Pulse Resp BP Pulse Ox O2 Del Method 07/13/22 15:31 36.8 C 101 H 18 100/65 100 Room Air 07/13/22 15:20 82 07/13/22 11:54 36.7 C 80 17 107/71 99 Room Air 07/13/22 08:55 85 07/13/22 06:08 36.6 C 88 18 96/57 L 96 Room Air Laboratory Results 07/12/22 10:05 07/13/22 04:33 PG Care Time/CCT Total # of Minutes Spent Total Time Spent with Patient: Total time spent is greater than 50% in coordination of care (as documented) at patient's floor/unit and/or counseling patient: Coding Level of Care Code 07713 SUB INP/OBS CARE 2/35MIN Diagnoses DKA (diabetic ketoacidosis) E11.10 LASHA (acute kidney injury) N17.9 Type 1 diabetes mellitus E10.9 Nausea & vomiting R11.2 Abdominal pain R10.9 Migraine G43.909
[2022-07-14] MEDS: INSULIN ASPART PER UNIT SC SCH ×3 (03:34→12:06)
[2022-07-14 07:59] LABS: Albumin Level 3.4 gm/dl (3.4-5.0); Bilirubin,Total 0.7 mg/dl (0.2-1.0); Calcium 8.6 mg/dl (8.5-10.1); Magnesium 1.6 mg/dl (1.7-2.4); Potassium 3.7 mmol/L (3.5-5.1)
[2022-07-14 08:09] LABS: Hematocrit (blood only) 36.9 % (40.1-51.0); Hemoglobin 13.2 g/dl (14.0-18.0); Mean Corpuscular Hemoglobin 31.4 pg (25.0-34.0); Mean Corpuscular Hgb Conc 35.8 g/dL (32.0-36.0); Mean Corpuscular Volume 87.6 fL (80.0-100.0); Mean Platelet Volume 9.6 fL (9.4-12.4); Platelet Count 145 K/uL (130-400); RDW Coefficient of Variation 12.5 % (11.5-14.5); RDW Standard Deviation 39.8 fL (36.4-46.3); Red Blood Count 4.21 M/uL (4.63-6.08); White Blood Count 6.41 K/ul (4.8-10.8)
[2022-07-14] MEDS: HEPARIN SOD 5,000 UNIT/0.5 ML VIAL SQ SCH (08:09)
[2022-07-14 08:14] LABS: Basophils # (auto) 0.04 K/uL (0-0.2); Basophils % (auto) 0.6 %; Eosinophils # (auto) 0.04 K/uL (0-0.50); Eosinophils % (auto) 0.6 %; Immature Granulocytes # (auto) 0.02 K/uL (0.00-0.02); Immature Granulocytes % (auto) 0.3 %; Lymphocytes # (auto) 2.81 K/uL (1.2-3.4); Lymphocytes % (auto) 43.8 %; Monocytes # (auto) 0.63 K/uL (0.24-0.82); Monocytes % (auto) 9.8 %; Neutrophils # (auto) 2.87 K/uL (1.4-6.5); Neutrophils % (auto) 44.9 %; Platelet Estimate Normal (Normal)
[2022-07-14 08:30] LABS: Albumin Globulin Ratio 1.5 (0.9-2); Creatinine Clr Calc Pharmacy 137.8 ml/min; Est GFR (African American) 142.3 ml/min; Est GFR (Non-African American) 122.8 ml/min; Globulin 2.2 gm/dl (2.5-4.0); Total Protein 5.6 gm/dl (6.0-8.3)
--- NOTE | 2022-07-14 08:49 | Pharmacy Report ---
Pharmacy Glycemic Short Note 2 - Date of Service July 14, 2022 - Glycemic Short BSG Results (Last 24 hours): 07/13/22 07/13/22 07/13/22 09:54 09:57 11:52 Glucose POC Glucose 211 H 157 H 136 H 07/13/22 07/13/22 07/13/22 15:27 15:51 20:16 Glucose POC Glucose 55 L* 107 H 313 H* 07/13/22 07/14/22 07/14/22 23:47 03:26 07:01 Glucose 201 H POC Glucose 170 H 108 H 07/14/22 07:26 Glucose POC Glucose 184 H OUTPATIENT ANTIDIABETIC REGIMEN: * Glargine 37 units SQ qPM + regular insulin sliding scale HbA1c: 12.2% (07/12/22) ASSESSMENT: 07/14/22: * Blood sugar well controlled over night, just above goal this morning, resume outpatient basal dose, and transition to giving it at 1130 today, then 1630 tomorrow, to align with administration time in usp (1630 daily). * Tighten CF/CR for breakfast today, as we are moving basal to later time. * Patient diet advanced to type 1 DM. 07/13/22: * Labs much improved this morning, anion gap closed, serum bicarbonate 20 mmol/L, and pH of 7.37 * Diet advanced from NPO to T1DM/clear liquid this morning * Dextrose-containing fluids discontinued * Insulin gtt has titrated down to current rate of 2.6 units/hr * Will attempt transition to SC basal/bolus this morning with slightly reduced outpatient basal dose * discontinued insulin infusion ~lunchtime today * Contacted correctional facility for clarification on SSI, but none could be provided besides correctional only (no carb coverage) 07/12/22: * Raoul is a 21 yo T1DM admitted with DKA. H&P indicates that patient had five days of hyperglycemia, abdominal pain, N/V and was refusing long acting insulin during this time. Presented with anion gap = 30, bicarb = 5, pH = 7.07. IV insulin drip initiated per DKA protocol. BSG trending down appropriately. Fluid orders have been modified to include dextrose as most recent labs continue to indication patient in DKA. PLAN FOR INPATIENT GLYCEMIC CONTROL: * Basal insulin * Lantus 37 units SQ daily * Bolus insulin * NovoLog per scale ACHS or Q6hrs while NPO * Goal Range: Low 110 mg/dL - High 140 mg/dL * Correction Factor: 35 mg/dL/unit (25mg/dL/unit for breakfast today) * Nutritional / Prandial insulin per carb ratio of 1 unit per 11 grams CHO consumed (1 unit per 8 grams CHO consumed for breakfast today)
[2022-07-14] MEDS: MAGNESIUM SULFATE / D5W 1 GM/100 ML BAG IV SCH ×2 (09:13→11:18)
[2022-07-14] MEDS ORDERED: LANTUS PER UNIT CHARGE SQ SCH (11:30)
--- NOTE | 2022-07-14 14:42 | Discharge Summary ---
Date of Service July 14, 2022 Admission HPI Per Admitting Provider Raoul Casas is a 21-year-old male with a past medical history significant for DM1 diagnosed at age 10 who is presenting today from a local alf facility with persistent hyperglycemia and nausea and vomiting. Over the past 5 days his sugar has been elevated though patient refused to take insulin. He has refused insulin because "its cold outside". Has also had nausea and vomiting with abdominal pain all over w/ radiation to back. He feels tired and reports chills but has no reported fevers, body aches, chest pain, palpitations, shortness of breath, cough, diarrhea, constipation, hematemesis, melena, hematochezia. Has been urinating without difficulty, denies dysuria or hematuria. Last admission for DKA was several years ago. On presentation is tachycardic to the 120s, otherwise vital signs within normal limits. White count elevated at 26 with left shift, lacat 2.4, procal pending. ABG: pH 7.07 CO2 16, O2 122, bicarb 5. Potassium 5.7, Na 134 corrects to 142 for glucose 583; Mag 2.1, Ca 8.9,AG 30. BUN 34, creatinine 1.51. Lipas 54. A1c pending. Principal Diagnosis DKA, hyperkalemia Discharge Exam Constitutional WD/WN, vitals as above Eyes + anicteric sclerae Neck trachea midline, no thyromegaly Respiratory normal respiratory effort, lungs clear to auscultation Cardiovascular RRR, no murmur, no edema Chest (Breasts) Chest: normal inspection of chest Gastrointestinal (Abdomen) normal bowel sounds, soft, nontender, no hepatosplenomegaly Musculoskeletal Extremities: extremities normal to inspection; no cyanosis and no clubbing Skin no rashes, warm and dry Neurologic moves all extremities and awake; no focal motor deficits Psychiatric A+Ox3, euthymic affect Lymphatic no lymphedema Discharge Data Allergies Allergy/AdvReac Type Severity Reaction Status Date / Time No Known Allergies Allergy Verified 07/12/22 15:35 Consultations 07/12/22 16:32 Consult Gas [employer] Routine Diabetes Follow up Diabetes Follow-up Needed for HgbA1c >9% Hospital Course (1) DKA (diabetic ketoacidosis): - 5 days of hyperglycemia 300-400, abdominal pain, nausea, vomiting while refusing insulin. History of DM1 at age 10, last hospitalization for DKA several years ago. - Presented with glucose 583, AG 30, pH 7.07, bicarb 5, lactate 2.9, K 5.7, Mg 2.3 -Now DKA resolved after insulin gtt, IVFs hydration -transitioned to basal and bolus insulin HgbA1C is quite high at 12.2%--> seen by CDE and pt admits to frequent noncompliance at the alf--> misses long acting insulin twice a week and short acting at least once daily lyes replaced recommend Lantus 37 units once daily and reg insulin 10 units standing with each meal on discharge (2) LASHA (acute kidney injury): - BUN 34, Cr 1.51, no history of CKD, no baseline labs for reference. With hyperkalemia now resolved as acidosis resolved - Likely secondary to DKA process now resolved, swage toolsetter back to normal (3) Type 1 diabetes mellitus: as above (4) Nausea & vomiting: resolved, 2/2 DKA (5) Abdominal pain: - Likely secondary to DKA. with elevated WBC more likely reactive to DKA/nausea, vomiting rather than infectious etiology. Did receive empiric dose of cefepime in ED. - Zofran prn for nausea/vomiting. now resolved no need for further abx (6) Migraine: has a h/o such in the past, having one now with photophobia-resolved with ibuprofen Plan DVT proph- Lovenox Dispo-dc to alf, discussed with Dr. Vieyra, alf MD on day of discharge Total Time Total Time Spent Total Time Spent (In Minutes): 35 min Discharge Plan Discharge Items Patient Disposition: [facility] Reason For Visit: HYPERGLYCEMIA Discharge Diagnosis: DKA Condition on Discharge: Good Activity: Resume your previous activity Non-emergency contact: Primary Care Provider Call non-emergency contact if: you have any medication questions Follow-up/Referrals: Rahul MARQUEZ [Primary Care Provider] - Diet: Carb Count or DM1 Addtl Attending Provider Instructions: You were admitted for DKA due to not taking your insulin. This is now resolved. Please ensure that you are taking all four doses of your insulin as prescribed. Pending Studies at Discharge: Yes Studies:: Final blood cultures-no growth to date Stand-Alone Forms: [facility] Skilled Items Patient informed of condition?: Yes Discharge Level of Care: Other Communicable Disease: No Discharge Prognosis: Improving Lines: None Urinary Catheter: No Medications and DC Order Prescriptions: Continued insulin glargine 100 unit/mL Solution 37 unit SUBCUT PM Changed Novolin R Regular U-100 Insuln 100 unit/mL Solution 10 unit SUBCUT AC Qty: 10 0RF Rx Instructions: Please give 30 min prior to meals if possible Discharge Orders: Discharge Order (Routine); Ordered 07/14/22 Ordered By: Daisy Zheng Admission Data Admit Date/Time: 07/12/22 11:50 Attending Provider: Daisy Zheng Admit Provider: Klever Tovar Primary Care Provider: Rahul MARQUEZ Other Providers: Jareth Kohler Coding Level of Care Code HOSP INP/OBS DISCH >30 MIN Diagnoses DKA (diabetic ketoacidosis) E11.10 LASHA (acute kidney injury) N17.9 Type 1 diabetes mellitus E10.9 Nausea & vomiting R11.2 Abdominal pain R10.9 Migraine G43.909
== END 2022-07-14 15:43 | DRG 638 ==
LOC: ED 09:32 → SUATTDRO 11:50 → 2S 11:50